=== PATIENT | male | born 1975 | race Caucasian/White ===

== ENCOUNTER → 2020-08-17 14:02 | Outpatient (CLI) | payer SELFPAY ==
--- NOTE | 2020-08-17 14:09 | EKG12_ITS ---
Test Reason : PREOP Blood Pressure : / mmHG Vent. Rate : 073 BPM Atrial Rate : 073 BPM P-R Int : 160 ms QRS Dur : 102 ms QT Int : 376 ms P-R-T Axes : 048 011 044 degrees QTc Int : 414 ms Normal sinus rhythm Normal ECG Confirmed by SANDRA OLMEDO, HUNTER ([id number]), digital editor DC ZUNIGA ([id number]) on 08/21/2020 9:26:06 AM Referred By: Prakash Quinn Confirmed By:HAMLET FLORES MD
[2020-08-17 15:28] LABS: Hematocrit 44.2 % (40-54); Hemoglobin 14.5 g/dL (13.0-16.5); Mean Corp Hgb Conc 32.8 g/dL (32-36); Mean Corpuscular Hgb 29.2 pg (27.0-32.0); Mean Corpuscular Volume 88.9 fL (80-94); Mean Platelet Vol. 10.5 fl (6.2-12.0); Platelet Count 245 K/mm3 (150-450); RBC Distribution Width CV 13.2 % (11.6-14.6); RBC Distribution Width SD 42.4 fl (35.1-43.9); Red Blood Count 4.97 M/mm3 (4.6-6.2); White Blood Count 7.3 K/mm3 (4.4-11.0)
[2020-08-17 15:45] LABS: Anion Gap 7 (5-15); BUN 19 mg/dL (7-18); BUN/Creat Ratio 17.4 RATIO (10-20); Calcium,Total 9.2 mg/dL (8.5-10.1); Chloride 103 mmol/L (98-107); Creatinine, Serum 1.09 mg/dL (0.70-1.30); EST Glomerular Filtration Rate 78 mL/min (>60); Est Glom Filt Rate - Afr Amer 95 mL/min (>60); Glucose 100 mg/dL (74-106); Potassium 3.6 mmol/L (3.5-5.1); Sodium Level 142 mmol/L (136-145)
== END ==
PROVIDERS: Referring Provider Physician Assistant Surgical; Visit Provider Physician Assistant Surgical
DX: Z01.818 Encounter for other preprocedural examination (principal); Z01.810 Encounter for preprocedural cardiovascular examination
CPT/HCPCS: 36415; 80048; 85027; 87635; 93005; C9803; U0002

== ENCOUNTER → 2021-01-01 09:22 | Outpatient (CLI) | payer SELFPAY ==
--- NOTE | 2021-01-01 09:30 | BI_ITS ---
MAMMOGRAPHY - BILATERAL DIAGNOSTIC REASON FOR EXAM: Male, 46 years old. Six-month history of palpable lump in the right retroareolar region. PERTINENT HISTORY: Non-contributory. TECHNIQUE: Digital bilateral breast nash (3D mammographic acquisition) in the CC and MLO projections. 2-D mediolateral oblique (MLO) and craniocaudad (CC) views of both breasts were obtained. CAD: Full Field Digital Mammography with Computer Added Detection was performed. COMPARISON: None. Baseline examination. FINDINGS: Breast Composition: The breasts are almost entirely fatty. There are no dominant masses or suspicious calcifications. No other significant abnormalities are identified. BI/DIAG MAMM W/CAD, BILAT IMPRESSION: Negative diagnostic mammogram. The patient has had a prior outside ultrasound examination of the right breast. ASSESSMENT CATEGORY: BIRADS Category 2: Benign. A letter regarding these results will be sent to the patient by the facility within 30 days. Approximately 10% of breast cancers are not detected by mammography. A normal mammogram should not delay biopsy of a clinically suspicious abnormality. Electronically Signed: Oscar Reyes MD at 10:39 EDT , Service support ,
== END ==
PROVIDERS: PCP Nurse Practitioner Family; Referring Provider Nurse Practitioner Family; Visit Provider Nurse Practitioner Family
DX: R22.2 Localized swelling, mass and lump, trunk (principal)
CPT/HCPCS: 77062; 77066; G0279

== ENCOUNTER 2024-05-16 11:50 | Emergency (ER) | payer OTHER, SELFPAY ==
[2024-05-16 11:51] VITALS: BP 153/97; PULSE 81; RESP 16; TEMP 36.9; O2SAT 99; BMI 34.2
--- NOTE | 2024-05-16 12:10 | RAD_ITS ---
STUDY: X-RAY - LEFT HAND, ATTENTION THIRD FINGER REASON FOR EXAM: Male, 49 years old. pain left middle finger TECHNIQUE: 3 view(s) of the finger were obtained. COMPARISON: None. FINDINGS: Normal metacarpal head. Normal metacarpophalangeal joint. Normal proximal phalanx. Normal middle phalanx. Normal distal phalanx. Normal proximal interphalangeal joint. Normal distal interphalangeal joint. RAD/Finger(s) Min 2 Views IMPRESSION: Normal x-ray examination of the finger. Electronically Signed: Gianni Paula MD at 13:49 EST ,
--- NOTE | 2024-05-16 12:14 | EDS_ITS ---
HPI <WINDY Sanchez - Last Filed: 05/16/24 14:12> History of Present Illness Chief Complaint: Wound Narrative Narrative: Patient is a 49-year-old male with history of hypertension presents to the [facility] apartment after receiving injury that occurred to the left middle finger yesterday. Patient states he was working at a job site when a nail punctured his left finger. Patient states today is more swollen, red and he is here for evaluation. Denies any other injury. PFSH <WINDY Sanchez - Last Filed: 05/16/24 14:12> [facility] Home Medications ?Medication ?Instructions ?Recorded ?Last Taken ?Type amoxicillin 500 mg tablet 500 mg PO BID #14 tabs 01/19/15 Unknown Rx oxycodone-acetaminophen 5 mg-325 1 tab PO Q6H PRN PRN Pain ##20 01/19/15 Unknown Rx mg tablet doxycycline hyclate 100 mg tablet 100 mg PO BID #10 tabs 05/16/24 Unknown Rx mupirocin 2 % topical ointment 1 applic topical BID #15 grams 05/16/24 Unknown Rx Allergy/AdvReac Type Severity Reaction Status Date / Time No Known Allergies Allergy Verified 05/16/24 11:51 Social History Smoking Status: Former smoker ROS <WINDY Sanchez - Last Filed: 05/16/24 14:12> ROS ED ROS Narrative Constitutional: Negative for fever, chills, weight loss, weakness Eyes: Negative for vision loss, vision change, double vision ENT: Negative for any sore throat, ear pain, congestion Cardiovascular: Negative for any chest pain, tightness, palpitations Respiratory: Negative for any cough, sputum production, hemoptysis, dyspnea, dyspnea on exertion, orthopnea Gastrointestinal: Negative for any abdominal pain, nausea, vomiting, diarrhea, constipation, blood in stool, blood in vomit : Negative for any urinary frequency, dysuria, retention, blood in urine Muscle skeletal: Negative for any neck pain, back pain. Positive for left third finger pain Neurological: Negative for any headache, syncope, dizziness Skin: Negative for any rashes, itching, abrasions. Positive laceration left finger Psychiatric: Negative for any depression, anxiety, stress, suicidal ideation, homicidal ideation Hematologic: Negative for any excessive bruising, easy bleeding EXAM <WINDY Sanchez - Last Filed: 05/16/24 14:12> Physical Exam Narrative Exam Narrative: Vital signs reviewed. Extremities: Patient is a 1.5 cm laceration to the palmar aspect of the left third finger just below the PIP joint. Patient is able to flex extend have this does cause some discomfort. The wound appears dry. There is slight edema to the dorsal aspect of the finger. There is no significant redness, there is no drainage noted. Neuro: Cranial nerves II through XII intact, no focal neurological deficits. Skin: Clean dry and intact with no rash, purpura, petechiae, vesicles or pustules. Backs/flank: No CVA tenderness, no midline spinal tenderness, no deformity. Psych: Normal mood and affect. No SI, HI or acute psychosis. Const Vital Signs: 05/16/24 11:51 Temperature 98.5 F Temperature Source Oral Pulse Rate 81 Respiratory Rate 16 Blood Pressure 153/97 H Blood Pressure Mean 115 Pulse Ox 99 Oxygen Delivery Method Room Air <Dr. Jeffry Gunderson DO - Last Filed: 05/16/24 15:36> Physical Exam Const Vital Signs: 05/16/24 11:51 Temperature 98.5 F Temperature Source Oral Pulse Rate 81 Respiratory Rate 16 Blood Pressure 153/97 H Blood Pressure Mean 115 Pulse Ox 99 Oxygen Delivery Method Room Air MDM <WINDY Sanchez - Last Filed: 05/16/24 14:12> [facility] Radiography Diagnostic Testing: Clinical Impression(s) from Imaging Studies Finger X-Ray 05/16/24 12:10 IMPRESSION: Normal x-ray examination of the finger. Electronically Signed: Gianni Paula MD at 13:49 EST , Treatment and Re-Evaluation :: Differential diagnosis includes however is not limited to: Foreign body, fracture, tendon involvement, laceration, cellulitis Patient appears generally well, vital signs are stable, patient is nontoxic- appearing. Presenting to the [facility] apartment of sustaining an injury from a nail to the left third finger yesterday. Patient's tetanus vaccination was within this last year. The wound appears clean. Patient received x-rays of the left finger. All radiologic examinations were read, reviewed by the emergency department attending. From these reads, a plan of care will be put in place. Patient is currently on Augmentin twice a day for the next 6 weeks. Patient's x-ray of the finger was negative. At this time, patient be treated with doxycycline twice a day for 5 days, patient can take this in conjunction with his Augmentin. Patient also complains of mupirocin ointment. Patient was given wound care instructions. He was given red flag signs. Patient again has full range of motion of his hand and finger. All questions were answered, patient stable for discharge. At this time, we opted not to suture, this has been open for greater than 24 hours, and it was a nail. Healing has already started. Patient stable for discharge <Dr. Jeffry Gunderson, DO - Last Filed: 05/16/24 15:36> [facility] History & Record Review Discussion w/independent historian: Patient Radiography Diagnostic Testing: Clinical Impression(s) from Imaging Studies Finger X-Ray 05/16/24 12:10 IMPRESSION: Normal x-ray examination of the finger. Electronically Signed: Gianni Paula MD at 13:49 EST Reading Location ID and State: [facility] / [place] , Service support , Treatment and Re-Evaluation :: Differential diagnosis includes however is not limited to: Foreign body, fracture, tendon involvement, laceration, cellulitis Patient appears generally well, vital signs are stable, patient is nontoxic- appearing. Presenting to the [facility] apartment of sustaining an injury from a nail to the left third finger yesterday. Patient's tetanus vaccination was within this last year. The wound appears clean. Patient received x-rays of the left finger. All radiologic examinations were read, reviewed by the emergency department attending. From these reads, a plan of care will be put in place. Patient is currently on Augmentin twice a day for the next 6 weeks. Patient's x-ray of the finger was negative. At this time, patient be treated with doxycycline twice a day for 5 days, patient can take this in conjunction with his Augmentin. Patient also complains of mupirocin ointment. Patient was given wound care instructions. He was given red flag signs. Patient again has full range of motion of his hand and finger. All questions were answered, patient stable for discharge. At this time, we opted not to suture, this has been open for greater than 24 hours, and it was a nail. Healing has already started. Patient stable for discharge I have personally performed a face to face assessment of the patient and have reviewed the WIL Note. I performed a substantive portion of the visit including all aspects of the following. My badillo findings include: History is 49-year-old male with middle finger swelling soreness and laceration over the volar proximal phalanx region. Patient was cut by a nail yesterday. Tetanus is up-to-date. H he states that he started Augmentin yesterday. Exam is mild swelling would not clarify it is a sausage digit. There is a superficial laceration. The wound edges around it are white due to the ointment he has been without on it. I do not appreciate any tenosynovitis at this time. Mild bruising. No obvious deformity. Neurovascular intact Medical Decison Making my independent interpretation of the x-rays is no acute fracture no foreign body. Local wound care discussed with the patient. Continued antibiotics. He was advised that he needs to the wound to dry and periods of time during the day. Discharge Plan Triage Chief Complaint: Wound ED Midlevel Provider: Yovanny Hernandez ED Provider: Jeffry Gunderson Dx/Rx/DC Orders Clinical Impression: Finger laceration Instructions: ED Laceration Superficial No Stitch, ED Laceration Extremity, ED Wound Check (No Infection) Prescriptions: New doxycycline hyclate 100 mg tablet 100 mg PO BID Qty: 10 0RF mupirocin 2 % ointment 1 applic topical BID Qty: 15 0RF No Action oxycodone-acetaminophen 1 TABLET tablet 1 tab PO Q6H PRN PRN (Reason: Pain) Qty: 20 0RF amoxicillin 500 MG tablet 500 mg PO BID Qty: 14 0RF Primary Care Provider: Raya Santana NP Referrals: Raya Santana OFFICE MACHINE INSTALLER, OFFICE MACHINE INSTALLER-C [Primary Care Provider] - Activity Restrictions/Additional Instructions: Keep the area clean and dry, return for any worsening symptoms. Print Language: Czech Disposition Disposition: Home, Self Care Discharge Date/Time: 05/16/24 14:23
[2024-05-16] MEDS: Doxycycline 100 MG CAPSULE PO (14:20)
== END 2024-05-16 14:23 | disposition home or self-care (01) ==
PROVIDERS: Emergency Provider Emergency Medicine; PCP Nurse Practitioner Family; Visit Provider Emergency Medicine
DX: S61.213A Laceration without foreign body of left middle finger without damage to nail, initial encounter (principal); Z87.891 Personal history of nicotine dependence; I10 Essential (primary) hypertension; W45.0XXA Nail entering through skin, initial encounter; Y92.89 Other specified places as the place of occurrence of the external cause
CPT/HCPCS: 73140; 99282

== ENCOUNTER → 2024-06-07 | Outpatient (CLI) | payer SELFPAY | END | disposition home or self-care (01) | PROVIDERS: PCP Nurse Practitioner Family; Referring Provider Nurse Practitioner Family; Visit Provider Nurse Practitioner Family | DX: R06.83 Snoring (principal); R53.82 Chronic fatigue, unspecified | CPT/HCPCS: 95810 ==

== ENCOUNTER → 2024-10-04 | Outpatient (CLI) | payer SELFPAY | END | disposition home or self-care (01) | LOC: SL 15:09 | PROVIDERS: PCP Nurse Practitioner Family; Referring Provider Nurse Practitioner Family; Visit Provider Nurse Practitioner Family | DX: G47.33 Obstructive sleep apnea (adult) (pediatric) (principal) | CPT/HCPCS: 94762 ==